=== PATIENT | female | born 1965 | race Caucasian/White ===

== ENCOUNTER 2018-04-09 15:22 | Emergency (ER) | payer MEDICARE, MEDICAID, SELFPAY ==
[2018-04-09 15:26] VITALS: BP 141/75; PULSE 79; RESP 22; TEMP 36.9; O2SAT 95
--- NOTE | 2018-04-09 15:36 | DI.RPTCT_ITS ---
SYMPTOM/DIAGNOSIS: LEFT FLANK/LEFT UPPER QUADRANT PAIN, COLICKY IN NATURE ABDOMINAL AND PELVIC CT: 04/09 CT examination of the abdomen and pelvis was performed without contrast administration. Images obtained through the lung bases are unremarkable. Liver and spleen have a normal noncontrast appearance. Gallbladder has been surgically removed. No biliary dilatation seen. The pancreas is unremarkable in appearance. Adrenals and kidneys appear normal. No urinary tract calcification or obstruction. Urinary bladder is nearly empty No abdominal wall hernia seen. No abdominal or pelvic adenopathy seen. Appendix appears normal. No evidence of diverticulitis or bowel obstruction. There is rounded fluid attenuation radiodensity in the pelvis on the right likely representing an ovarian cyst. The possibility of complex or solid mass not entirely excluded. Pelvic ultrasound suggested for correlation. CONCLUSION: Indeterminate but probably cystic right adnexal mass. Pelvic ultrasound suggested for correlation.
--- NOTE | 2018-04-09 15:38 | ED.GENADUL ---
Disposition Clinical Impression: Urinary tract infection Disposition: HOME Condition: Good Instructions: Urinary Tract Infection in Women (ED) Additional Instructions: Your CAT scan did reveal a cyst near your right ovary. Please follow-up with your regular doctor as an outpatient to have this further characterized by an outpatient ultrasound, as we discussed. Take antibiotics as prescribed. Continue all of your regularly prescribed medications. Home to rest this evening. Small, frequent sips of fluids to maintain hydration. Return to the emergency department for any acute concerns. You received narcotics in the form of morphine in addition to your prescribed oxycodone. You should not drive or operate heavy equipment the remainder of the day Prescriptions: Cephalexin [Keflex] 500 mg PO TID #20 cap Medical Decision Making - Lab Data Abnormal Lab Results 04/09/18 04/09/18 15:45 15:45 WBC 7.30 RBC 4.46 Hgb 14.4 Hct 39.9 MCV 89.5 MCH 32.3 MCHC 36.1 H RDW 12.7 Plt Count 364 MPV 8.5 Immature Gran % 0.8 Neutrophils % 56.5 Lymphocytes % 31.6 Monocytes % 8.6 Eosinophils % 1.8 Basophils % 0.7 Absolute Neutrophils 4.12 Absolute Lymphocytes 2.31 Absolute Monocytes 0.63 Absolute Eosinophils 0.13 Absolute Basophils 0.05 Sodium 134 L Potassium 4.0 Chloride 97 L Carbon Dioxide 27.8 Anion Gap 9.2 BUN 9 Creatinine 0.88 Estimated GFR/1.73 m2 >= 60.00 Glucose 88 Calcium 9.7 Magnesium 1.8 Total Bilirubin 0.5 AST 32 ALT 41 Alkaline Phosphatase 72 Total Protein 8.2 Albumin 4.8 Lipase 148 Results reviewed for labs ordered during visit: Yes - Radiology Data Radiology results: report reviewed, image reviewed - Medical Decision Making 53-year-old female presents with left upper quadrant/flank pain over 2 days time. She is afebrile, somewhat in distress as I walk into the room. Her exam reveals tenderness without rebound or guarding in the left upper quadrant of the abdomen. Differential diagnosis includes renal colic, ileus, diverticulitis. IV placed, patient given antiemetic and analgesic, referred for laboratory testing and CT images. Unremarkable CBC with white blood cell count of 7. Sodium 134, potassium 4.0, chloride 97, BUN 9, creatinine 0.8, AST 32, ALT 41. Lipase 148. Urinalysis reveals small amount of blood, moderate leuk esterase,Greater than 50 white blood cells with bacteria present. Culture pending. CT images reveal right 4 cm cyst, likely arising from the right adnexa. Otherwise unremarkable study. Patient advised she will require outpatient follow-up of her asymptomatic right adnexal cyst. Presentation is consistent with a sending urinary tract infection and will treat with an initial dose of ceftriaxone, followed by oral Keflex History of Present Illness - General Chief complaint: Abd Prob Stated complaint: UNKNOWN Time Seen by Provider: 04/09/18 15:26 Source: patient, RN notes reviewed Mode of arrival: ambulatory Limitations: no limitations - History of Present Illness Initial comments: 53-year-old female presents with abdominal pain: Patient states that she had a fairly rapid onset yesterday of left upper quadrant/flank pain that is constant, moderate, become severe as it has waves of increasing pain intermittent severe waves of pain. She states is nonradiating, without modifying factors. She has not had fever or vomiting. Denies fall or injury. No rash. She has otherwise been well. - Related Data Calcium Carbonate [Calcium] 600 mg PO BOLUS 04/09/18 Cephalexin [Keflex] 500 mg PO TID #20 cap 04/09/18 Cholecalciferol (Vitamin D3) [Vitamin D3] 5,000 unit PO DAILY 04/09/18 Fenofibrate 160 mg PO DAILY 04/09/18 Gabapentin [Neurontin] 900 mg PO BID 04/09/18 Levothyroxine Sodium [Synthroid] 50 mcg PO DAILY 04/09/18 Losartan Potassium 50 mg PO DAILY 04/09/18 Melatonin 20 mg PO HS 04/09/18 Meloxicam 15 mg PO DAILY 04/09/18 Methocarbamol [Robaxin] 750 mg PO TID 04/09/18 Metoprolol Succinate [Toprol Xl] 50 mg PO TID 04/09/18 Mirtazapine [Remeron] 7.5 mg PO HS 04/09/18 OxyCODONE [Roxicodone] 5 mg PO TID 04/09/18 Oxybutynin Chloride [Oxybutynin Chloride ER] 10 mg PO .Q6PM 04/09/18 QUEtiapine CR [SEROquel XR] 300 mg PO .Q6PM 04/09/18 Quetiapine Fumarate [Seroquel] 50 mg PO DAILY 04/09/18 Venlafaxine [Effexor] 75 mg PO BID 04/09/18 Venlafaxine [Effexor] 100 mg PO BID 04/09/18 Allergies Allergy/AdvReac Type Severity Reaction Status Date / Time codeine Allergy Unverified 04/09/18 15:35 doxycycline Allergy Unverified 04/09/18 15:35 Egg Derived Allergy Unverified 04/09/18 15:35 hydromorphone [From Dilaudid] Allergy Unverified 04/09/18 15:35 paroxetine [From Paxil] Allergy Unverified 04/09/18 15:35 Penicillins Allergy Unverified 04/09/18 15:35 Review of Systems Other: 6 systems reviewed, otherwise negative Past Medical History - Past Medical History See nursing notes General Exam - General Limitations: no limitations General appearance: alert, in no apparent distress - Head Head exam: Present: atraumatic, normocephalic - Eye Eye exam: Present: PERRL, EOMI - Neck Neck exam: Present: normal inspection, full ROM - Respiratory Respiratory exam: Present: normal lung sounds bilaterally. Absent: respiratory distress - Cardiovascular Cardiovascular Exam: Present: regular rate, normal rhythm - GI/Abdominal GI/Abdominal exam: Present: soft, tenderness, other (Left upper quadrant and flank tender to palpation ) - Extremities Exam Extremities exam: Present: normal inspection, normal capillary refill - Neurological Exam Neurological exam: Present: alert, oriented X3 - Psychiatric Psychiatric exam: Present: normal affect, normal mood - Skin Skin exam: Present: warm, dry, intact Course Vital Signs - 24 hr 04/09/18 15:26 Temperature 36.9 C Pulse 79 Respiratory 22 Rate Blood Pressure 141/75 Pulse Oximetry 95
[2018-04-09] MEDS: Ondansetron 4 MG/2 ML VIAL IVP (15:51)
[2018-04-09] MEDS: Ketorolac 30 MG/ML VIAL IVP (15:52)
[2018-04-09] MEDS: Normal Saline 1,000 ML 150 ML IV (15:53)
[2018-04-09 15:55] LABS: Abs Immature Grans 0.06 k/cumm (0.0-0.09); Absolute Basophil Count 0.05 k/cumm (0.0-0.2); Absolute Eosinophil Count 0.13 k/cumm (0.0-0.7); Absolute Lymphocyte Count 2.31 k/cumm (1.2-3.4); Absolute Monocyte Count 0.63 k/cumm (0.11-0.7); Absolute Neutrophil Count 4.12 k/cumm (1.2-6.7); Basophils % 0.7; Eosinophils % 1.8; HCT 39.9 % (36.0-46.0); HGB 14.4 g/dL (12.0-15.5); Immature Grans % 0.8; Lymphocytes % 31.6; Mean Corp. HGB Concentration 36.1 g/dL (32.0-36.0); Mean Corpuscular Hemoglobin 32.3 pg (27.0-33.0); Mean Corpuscular Volume 89.5 fL (80-95); Mean Platelet Volume 8.5 fL (8.0-11.0); Monocytes % 8.6; Neutrophils % 56.5; Platelet Count 364 x1000/uL (130-400); RBC 4.46 m/cumm (4.00-5.20); RBC Distribution Width 12.7 % (11.7-14.6)
[2018-04-09 16:12] LABS: ALT 41 U/L (12-78); AST 32 U/L (15-37); Albumin 4.8 g/dL (3.4-5.0); Alkaline Phosphatase 72 U/L (46-116); Anion Gap 9.2 mmol/L (3-11); BUN 9 mg/dL (7-18); Bilirubin, Total 0.5 mg/dL (0.2-1.0); CO2 27.8 mmol/L (21.0-32.0); CREATININE 0.88 mg/dL (0.55-1.02); Calcium 9.7 mg/dL (8.5-10.1); Chloride 97 mmol/L (98-107); Glucose 88 mg/dL (70-100); Lipase 148 U/L (73-393); Magnesium 1.8 mg/dL (1.8-2.4); Sodium 134 mmol/L (136-145); Total Protein 8.2 g/dL (6.4-8.2)
[2018-04-09] MEDS: oxyCODONE 5 MG TAB 10 MG (16:17)
--- NOTE | 2018-04-09 16:24 | DI.VRAD_ITS ---
EXAM: CT Abdomen and Pelvis Without Intravenous Contrast CLINICAL HISTORY: 53 years old, female; Pain; Abdominal pain; Flank; Left; Patient HX: Left flank/left upper quadrant pain, colicky in nature TECHNIQUE: Axial computed tomography images of the abdomen and pelvis without intravenous contrast. Coronal and sagittal reformatted images were created and reviewed. COMPARISON: No relevant prior studies available. FINDINGS: Lung bases: Unremarkable. No mass. No consolidation. ABDOMEN: Liver: Unremarkable. Gallbladder and bile ducts: The gallbladder is surgically absent. No ductal dilation. Pancreas: Unremarkable. No ductal dilation. Spleen: Unremarkable. No splenomegaly. Adrenals: Unremarkable. No mass. Kidneys and ureters: Unremarkable. No obstructing stones. No hydronephrosis. Stomach and bowel: Unremarkable. No obstruction. No mucosal thickening. PELVIS: Appendix: No findings to suggest acute appendicitis. Bladder: Unremarkable. No stones. Reproductive: 4 cm fluid density simple cyst in the right hemipelvis, likely arising from the right adnexa. The uterus is surgically absent. ABDOMEN and PELVIS: Intraperitoneal space: Unremarkable. No free air. No significant fluid collection. Bones/joints: No acute fracture. No dislocation. Soft tissues: Unremarkable. Vasculature: Unremarkable. No abdominal aortic aneurysm. Lymph nodes: Unremarkable. No enlarged lymph nodes. IMPRESSION: Fluid density 4 cm simple cyst in the right hemipelvis, likely arising from the right adnexa. Recommend further evaluation with pelvic ultrasound if clinically indicated. Dictated and Authenticated by: Woo Max MD. Ordering:AIDA SCHMID MD
[2018-04-09 16:43] LABS: Bilirubin Negative (Negative); Blood Small (Negative); Clarity Clear; Glucose Negative (Negative); Ketones Negative (Negative); Leukocyte Esterase Moderate (Negative); Nitrite Negative (Negative); Urobilinogen 0.2 EU/dL (Up TO 0.2)
[2018-04-09 16:56] LABS: Bacteria Few HPF (Negative); C & S Indicated? Yes; Casts Negative LPF (Negative); Crystals Negative HPF (Negative); Epithelial Cells Few HPF (Negative); Mucus Negative (Negative); Other Cells Few Renal (Negative); WBC >50 HPF (0-5)
[2018-04-09] MEDS: MORPHine 10 MG/ML VIAL 6 MG IVP (17:06)
[2018-04-09 17:50] VITALS: BP 109/65; PULSE 68; RESP 16; TEMP 36.9; O2SAT 96
== END 2018-04-09 19:12 | disposition home or self-care (01) ==
PROVIDERS: Emergency Provider Emergency Medicine; PCP Family Medicine
DX: N39.0 Urinary tract infection, site not specified (principal); N83.201 Unspecified ovarian cyst, right side
CPT/HCPCS: 74176; 96361; 96365; 96375; 99284 ×2; J0696; J1885; J2270; J2405; 36415; 80053; 83690; 81003; 81015; 83735; 85025; 87086

== ENCOUNTER 2018-04-30 00:26 | Outpatient (CLI) | payer OTHER, MEDICARE, MEDICAID, SELFPAY ==
--- NOTE | 2018-04-30 09:20 | DI.RAD_ITS ---
SYMPTOM/DIAGNOSIS: DISABILITY DETERMINATION, LOW BACK PAIN LUMBAR SPINE: AP and lateral views. No priors. There are five lumbar type vertebral bodies. There is no spondylolysis present. There is 5 mm. of anterolisthesis of L 4 on L 5. Mild disc space narrowing is seen at L 1-2, L 2-3 and L 5-S 1. Small endplate osteophytes are present throughout the lumbar spine. No acute fractures or subluxations are seen. The bones are normally mineralized. Surgical clips are seen in the right upper quadrant of the abdomen which may reflect prior cholecystectomy. There is a mild right convex curvature of the spine which may be positional. IMPRESSION: Mild degenerative changes seen in the lumbar spine. No acute fracture or subluxation. ID confirmed by photo scoop driver license.
== END 2018-04-30 00:46 ==
PROVIDERS: PCP Family Medicine; Visit Provider Pediatrics Pediatric Rheumatology
DX: M54.5 Low back pain (principal); Z02.71 Encounter for disability determination
CPT/HCPCS: 72100

== ENCOUNTER 2018-09-18 10:03 | Outpatient (CLI) | payer MEDICARE, MEDICAID, SELFPAY ==
[2018-09-18 11:03] LABS: Abs Immature Grans 0.14 k/cumm (0.0-0.09); Absolute Basophil Count 0.03 k/cumm (0.0-0.2); Absolute Eosinophil Count 0.14 k/cumm (0.0-0.7); Absolute Lymphocyte Count 2.26 k/cumm (1.2-3.4); Absolute Neutrophil Count 5.68 k/cumm (1.2-6.7); Basophils % 0.3; Eosinophils % 1.5; HCT 38.1 % (36.0-46.0); HGB 13.2 g/dL (12.0-15.5); Immature Grans % 1.5; Mean Corp. HGB Concentration 34.6 g/dL (32.0-36.0); Mean Corpuscular Hemoglobin 32.1 pg (27.0-33.0); Mean Corpuscular Volume 92.7 fL (80-95); Mean Platelet Volume 8.3 fL (8.0-11.0); Monocytes % 8.8; Neutrophils % 62.9; Platelet Count 301 x1000/uL (130-400); RBC 4.11 m/cumm (4.00-5.20); RBC Distribution Width 13.2 % (11.7-14.6); White Blood Cell Count 9.05 k/cumm (4.4-10.8)
[2018-09-18 11:37] LABS: ALT 21 U/L (12-78); Albumin 3.7 g/dL (3.4-5.0); Alkaline Phosphatase 57 U/L (46-116); Anion Gap 8.3 mmol/L (3-11); BUN 16 mg/dL (7-18); Bilirubin, Total 0.2 mg/dL (0.2-1.0); CO2 29.7 mmol/L (21.0-32.0); CREATININE 0.83 mg/dL (0.55-1.02); Calcium 8.7 mg/dL (8.5-10.1); Chloride 101 mmol/L (98-107); Glucose 97 mg/dL (70-100); Sodium 139 mmol/L (136-145); Total Protein 6.6 g/dL (6.4-8.2)
[2018-09-18 11:50] LABS: AST 8 U/L (15-37)
[2018-09-21 10:51] LABS: Hepatitis B Surface Ag Negative (NEGAT)
[2018-09-21 10:57] LABS: Hepatitis C Ab w Rflx HCV PCR Negative (NEGAT)
[2018-09-21 11:41] LABS: HBs Antibody, Quant <3.1 mIU/mL; Hepatitis B Surface Ab Negative
== END 2018-09-18 10:23 ==
PROVIDERS: Surgery; PCP Family Medicine; Visit Provider Family Medicine
DX: E03.9 Hypothyroidism, unspecified (principal); Z79.899 Other long term (current) drug therapy
CPT/HCPCS: 36415; 80053; 86706; 86803; 87340; 84443; 85025

== ENCOUNTER 2018-10-28 13:49 | Emergency (ER) | payer MEDICARE, MEDICAID, SELFPAY ==
[2018-10-28] VITALS (20 sets, daily range): BP systolic 102–148; BP diastolic 46–84; PULSE 60–73; RESP 7–21; TEMP 36.5–36.7; O2SAT 96–99
--- NOTE | 2018-10-28 14:37 | ED.GENADUL_ITS ---
Discharge Plan Disposition Patient Disposition: HOME Condition: Stable Discharge Details Chief Complaint: GenMedical Clinical Impression: Generalized pain, Chronic neck pain, Chronic back pain Primary Care Provider: Frank Lei ED Provider: Nell Adam Home Meds and New Rx's Prescriptions: Continued calcium carbonate 600 MG tablet 600 mg PO BOLUS RF: 0 cholecalciferol (vitamin D3) 5,000 UNIT capsule 5,000 unit PO DAILY RF: 0 methocarbamol [Robaxin] 500 MG tablet 750 mg PO TID RF: 0 oxybutynin chloride 10 MG tablet extended release 24hr 10 mg PO .Q6PM RF: 0 metoprolol succinate [Toprol XL] 50 MG tablet extended release 24 hr 50 mg PO DAILY RF: 0 meloxicam 15 MG tablet 15 mg PO DAILY RF: 0 levothyroxine [Synthroid] 50 MCG tablet 50 mcg PO DAILY RF: 0 gabapentin 300 MG capsule 900 mg PO BID RF: 0 mirtazapine [Remeron] 15 MG tablet 7.5 mg PO HS RF: 0 fenofibrate 160 MG tablet 160 mg PO DAILY RF: 0 quetiapine [Seroquel] 50 MG tablet 50 mg PO DAILY RF: 0 quetiapine [Seroquel XR] 300 MG tablet extended release 24 hr 300 mg PO .Q6PM RF: 0 melatonin 10 MG tablet 20 mg PO HS RF: 0 venlafaxine 150 mg Tablet Extended Release 24hr 300 mg PO DAILY AM RF: 0 mycophenolate mofetil 500 mg Tablet 500 mg PO DAILY AM RF: 0 prednisone 10 mg Tablet 10 mg PO DAILY AM RF: 0 Rituxan 10 mg/mL Concentrate RF: 0 ranitidine HCl 150 mg Tablet 150 mg PO BID RF: 0 Discontinued Metocarbinol 750 mg PO BID RF: 0 Discharge Instructions Instructions: Chronic Pain (ED), Chronic Back Pain (ED) Additional Instructions: Please return immediately to the emergency department if you develop any new or worsening symptoms or if you become otherwise concerned. It is extremely important that you make an appointment to be seen as soon as possible in follow- up this visit by your primary care doctor and also by your pain management physician. Please attend your scheduled appointment with your metal stamper tomorrow as planned. Referrals: Frank Lei [Primary Care Provider] - Discharge Data Discharge Date/Time-TO BE ENTERED AT DEPARTURE: 03/13/19 20:17 Medical Decision Making Sure-Gwendolyn Craig is a 53-year-old woman with history of of bullous pemphigoid on rituximab and mycophenolate, hypothyroidism presenting to the emergency department with all of her body aches worse in her lower neck and lower back, generalized weakness, lightheadedness over the past 2-3 weeks. On exam patient is well and nontoxic appearing. She has diffuse tenderness to palpation of the cervical, thoracic, lumbar spine with worse tenderness over the C6-C7 area no overlying skin changes. Nonfocal neurologic exam. Unclear etiology of symptoms. Concern for metabolic/lyte derangement, occult pneumonia, UTI, influenza, other. Doubt ACS. Exam/history is not consistent with sepsis, meningitis. Patient is immunocompromised, there is some possibility that her pain in her neck could represent infectious etiology, however I have low suspicion for this given her presentation. Plan for EKG, screening labs, IV fluids, UA, chest x-ray, will monitor and reassess. CT CERVICAL SPINE: Multiple contiguous axial images of the cervical spine were obtained. Sagittal and coronal reformatted images were evaluated on the [employer] work station, There is normal alignment of the cervical spine. No acute fracture or subluxation is seen. There is mild disc space narrowing at C5-6 and C6-7. Small end plate osteophytes are seen from C5-6 and C6-7. No significant central spinal canal stenosis is seen. There is mild neuroforaminal narrowing at C5-6 and C6-7 bilaterally. The soft tissues are unremarkable. IMPRESSION: 1. No acute fracture or subluxation in the cervical spine. 2. Mild cervical spondylosis. If there is continued concern MRI should be considered. CHEST X-RAY: PA and Lateral. The heart is normal in size. The lungs are clear. The mediastinal structures and pleura appear intact. CONCLUSION: Normal chest. CT LUMBAR SPINE: Multiple contiguous axial images of the lumbar spine were obtained. Sagittal and coronal reformatted images were evaluated on the [employer] work station. There is a very mild right convex scoliotic curvature of the spine. No acute fractures or subluxations are seen. At L5-S1 there is a mild disc bulge eccentric to the left and extending laterally to the left. No significant central spinal canal stenosis is seen. There are degenerative changes of the facets. There is mild narrowing of the left neural foramen. At L4-L5 there is a diffuse disc bulge extending to the left laterally. Degenerative changes of the facets are seen. No significant central spinal canal stenosis is seen. There is mild narrowing of the left neural foramen. It may impinge upon the exiting left nerve root. At L3-L4 no significant central spinal canal stenosis is seen. There may be mild narrowing of the neural foramen bilaterally. At L2-L3 there is a vacuum disc. There is disc space narrowing present. There is a diffuse disc bulge. Degenerative changes of the facets are seen. There is mild narrowing of the neural foramen and mild bilateral neural foraminal narrowing left greater than right. At L1-L2 there is disc space narrowing. End plate osteophytes are seen. There is a diffuse disc bulge. There is mild narrowing of the central spinal canal and no significant neural foraminal stenosis. The soft tissues are grossly unremarkable. IMPRESSION: Degenerative changes in the cervical spine as described above. If there is continued concern an MRI should be considered. I discussed negative CT results with the patient. Patient reports that she thinks pain has actually been this bad for quite some time, and she would like to see pain management. She does not think that there has been an acute worsening of pain. This makes infectious etiology very unlikely at this point. I did discuss outpatient MRI via her PCP with the patient, and she states that she would like to change to a PCP in this area as she lives in [place]. He would also like to see pain management and NVR H as well. Patient placed on care management list for outpatient follow-up. Patient feels well at this time and request discharge. She feels that her pain is manageable. I had a lengthy discussion with the patient regarding return to emergency department precautions, home care, and importance of outpatient follow-up. She verbalized understanding of the plan and is amenable. All questions were answered. Medical Records Medical records reviewed: Yes I reviewed the patient's medical records. Lab Data Lab results reviewed: Yes I reviewed the patient's lab results. 10/28/18 15:47 Blood Blood Culture - Final NO GROWTH 120 HOURS 10/28/18 15:35 Blood Blood Culture - Final NO GROWTH 120 HOURS 10/28/18 15:15 Nasopharynx Influenza Types A,B Antigen - Final Laboratory Tests Range/Units 10/28/18 10/28/18 10/28/18 15:15 15:15 15:15 WBC (4.4-10.8) k/cumm 6.73 RBC (4.00-5.20) m/cumm 3.86 L Hgb (12.0-15.5) g/dL 12.4 Hct (36.0-46.0) % 35.5 L MCV (80-95) fL 92.0 MCH (27.0-33.0) pg 32.1 MCHC (32.0-36.0) g/dL 34.9 RDW (11.7-14.6) % 13.6 Plt Count (130-400) x1000/uL 307 MPV (8.0-11.0) fL 8.2 ESR (0-30) MM/HR 23 Sodium (136-145) mmol/L 135 L Potassium (3.5-5.1) mmol/L 4.1 Chloride (98-107) mmol/L 98 Carbon Dioxide (21.0-32.0) mmol/L 27.9 Anion Gap (3-11) mmol/L 9.1 BUN (7-18) mg/dL 13 Creatinine (0.55-1.02) mg/dL 0.69 Estimated GFR/1.73 m2 (mL/min/1.73m2) >= 60.00 Glucose (70-100) mg/dL 85 Lactate (0.6-1.4) mmol/l 1.5 H Calcium (8.5-10.1) mg/dL 9.4 Total Bilirubin (0.2-1.0) mg/dL 0.3 AST (15-37) U/L 22 ALT (12-78) U/L 27 Alkaline Phosphatase (46-116) U/L 67 Troponin I Cancelled C-Reactive Protein (0.0-0.3) mg/dL 1.22 H Total Protein (6.4-8.2) g/dL 7.3 Albumin (3.4-5.0) g/dL 4.0 TSH (0.358-3.74) uIU/mL 3.91 H Free T4 (0.76-1.46) ng/dL 0.99 Urine Color (Yellow) Urine Clarity Urine pH (5-8) Ur Specific Paramount (1.005-1.025) Urine Protein (Negative) mg/dL Urine Ketones (Negative) mg/dL Urine Blood (Negative) Urine Nitrite (Negative) Urine Bilirubin (Negative) Urine Urobilinogen (Up TO 0.2) EU/dL Ur Leukocyte Esterase (Negative) Urine RBC (0-2) Urine WBC (0-5) HPF Ur Epithelial Cells (Negative) HPF Urine Crystals (Negative) HPF Urine Bacteria (Negative) HPF Urine Casts (Negative) LPF Urine Mucus (Negative) Urine Other (Negative) Ur Culture Indicated? Urine Glucose (Negative) mg/dL Range/Units 10/28/18 10/28/18 10/28/18 15:15 16:47 18:15 WBC (4.4-10.8) k/cumm RBC (4.00-5.20) m/cumm Hgb (12.0-15.5) g/dL Hct (36.0-46.0) % MCV (80-95) fL MCH (27.0-33.0) pg MCHC (32.0-36.0) g/dL RDW (11.7-14.6) % Plt Count (130-400) x1000/uL MPV (8.0-11.0) fL ESR (0-30) MM/HR Sodium (136-145) mmol/L Potassium (3.5-5.1) mmol/L Chloride (98-107) mmol/L Carbon Dioxide (21.0-32.0) mmol/L Anion Gap (3-11) mmol/L BUN (7-18) mg/dL Creatinine (0.55-1.02) mg/dL Estimated GFR/1.73 m2 (mL/min/1.73m2) Glucose (70-100) mg/dL Lactate (0.6-1.4) mmol/l Calcium (8.5-10.1) mg/dL Total Bilirubin (0.2-1.0) mg/dL AST (15-37) U/L ALT (12-78) U/L Alkaline Phosphatase (46-116) U/L Troponin I < 0.02 < 0.02 C-Reactive Protein (0.0-0.3) mg/dL Total Protein (6.4-8.2) g/dL Albumin (3.4-5.0) g/dL TSH (0.358-3.74) uIU/mL Free T4 (0.76-1.46) ng/dL Urine Color (Yellow) Yellow Urine Clarity Clear Urine pH (5-8) 7.5 Ur Specific Paramount (1.005-1.025) 1.010 Urine Protein (Negative) mg/dL Negative Urine Ketones (Negative) mg/dL Negative Urine Blood (Negative) Trace-intact H Urine Nitrite (Negative) Negative Urine Bilirubin (Negative) Negative Urine Urobilinogen (Up TO 0.2) EU/dL 0.2 Ur Leukocyte Esterase (Negative) Trace H Urine RBC (0-2) 0-2 Urine WBC (0-5) HPF 0-2 Ur Epithelial Cells (Negative) HPF Rare Urine Crystals (Negative) HPF Negative Urine Bacteria (Negative) HPF Rare Urine Casts (Negative) LPF Negative Urine Mucus (Negative) Negative Urine Other (Negative) Negative Ur Culture Indicated? No Urine Glucose (Negative) mg/dL Negative ECG Data Attestation: I personally reviewed and interpreted this ECG (s) as follows: Interpretation: EKG shows no STEMI HPI General Mode of arrival: ambulatory . Date/Time Provider Initiated Documentation: 10/28/18 14:37 . Limitations to Documentation: no limitations . Information obtained by: patient . HPI Narrative: Moses Craig is a 53-year-old woman with history of bullous pemphigoid, hypothyroidism, chronic back pain presenting to the emergency department with generalized body pain and lightheadedness. Patient reports that over the past 2-3 weeks she has had generalized body pain, worse in her lower neck and low back without other significant focal pain. Patient reports that neck and back pain is chronic, but severity is worse than usual. She also reports feeling somewhat weak and lightheaded over the same time period. She has had no presyncopal or syncopal episodes. She has had no fever, no cough, no shortness of breath, no vomiting, no diarrhea, no focal weakness. Has been eating and drinking as usual. No recent travel. Patient is on rituximab and mycophenolate. Has been able to go about her daily activities as usual. Related Data Home Medications Medication Instructions Recorded Confirmed calcium carbonate 600 mg PO BOLUS 04/09/18 04/09/18 cholecalciferol (vitamin D3) 5,000 unit PO DAILY 04/09/18 10/28/18 fenofibrate 160 mg PO DAILY 04/09/18 10/28/18 gabapentin 900 mg PO BID 04/09/18 10/28/18 levothyroxine [Synthroid] 50 mcg PO DAILY 04/09/18 10/28/18 melatonin 20 mg PO HS 04/09/18 10/28/18 meloxicam 15 mg PO DAILY 04/09/18 10/28/18 methocarbamol [Robaxin] 750 mg PO TID 04/09/18 10/28/18 metoprolol succinate [Toprol XL] 50 mg PO DAILY 04/09/18 10/28/18 mirtazapine [Remeron] 7.5 mg PO HS 04/09/18 10/28/18 oxybutynin chloride 10 mg PO .Q6PM 04/09/18 10/28/18 quetiapine [Seroquel XR] 300 mg PO .Q6PM 04/09/18 10/28/18 quetiapine [Seroquel] 50 mg PO DAILY 04/09/18 10/28/18 Rituxan 10/28/18 mycophenolate mofetil 500 mg PO DAILY AM 10/28/18 10/28/18 prednisone 10 mg PO DAILY AM 10/28/18 10/28/18 ranitidine HCl 150 mg PO BID 10/28/18 10/28/18 venlafaxine 300 mg PO DAILY AM 10/28/18 10/28/18 Allergies Allergy/AdvReac Type Severity Reaction Status Date / Time codeine Allergy Unverified 10/28/18 14:04 doxycycline Allergy Unverified 10/28/18 14:04 Egg Derived Allergy Unverified 10/28/18 14:04 hydromorphone [From Dilaudid] Allergy Unverified 10/28/18 14:04 paroxetine [From Paxil] Allergy Unverified 10/28/18 14:04 Penicillins Allergy Unverified 10/28/18 14:04 General Stated Complaint: GenMedical MELANIE: 3 Review of Systems Review of Systems Constitutional: denies fevers, reports generalized weakness Eyes: denies eye pain ENT: denies facial pain, dental pain, sore throat Cardiovascular: denies chest pain, reports mild lightheadedness Pulmonary: Denies cough, shortness of breath GI: denies abdominal pain, vomiting, diarrhea : denies flank pain MSK: denies back pain, neck pain, arthralgias, reports generalized myalgias Skin: denies rash Neuro: denies headaches, numbness, weakness [facility] Social History Smoking/Tobacco Use Status: Never Do you feel safe in your relationship?: Yes Exam Narrative Exam Narrative: Constitutional: well and [id number], pleasant, conversing normally HENT: head atraumatic/normocephalic/normal inspection, mucous membranes moist Eyes: conjunctiva normal, sclera normal, pupils 3mm b/l Neck: no stridor, normal ROM, trachea midline, diffuse tenderness to palpation of the cervical, thoracic, lumbar spine, with worse tenderness over C6-C7 Chest: normal inspection Resp: normal work of breathing, LCTAB Cardio: normal rate, normal rhythm, no murmur appreciated GI: abdomen soft, non-tender, non-distended Back: normal inspection, no rash Skin: warm, dry, normal color, no rash Neuro: alert, not altered, grossly non-focal, normal tone, motor 5 out of 5 throughout Psych: normal mood, normal affect, normal behavior Course Vital Signs Temperature 36.5 C 10/28/18 13:58 Pulse 66 10/28/18 13:58 Respiratory Rate 16 10/28/18 13:58 Blood Pressure 111/64 10/28/18 13:58 Pulse Oximetry 96 10/28/18 13:58 Temperature 36.5 C 10/28/18 13:58 Pulse 66 10/28/18 13:58 Respiratory Rate 16 10/28/18 13:58 Respiratory Effort 10/28/18 14:05 Blood Pressure 111/64 10/28/18 13:58 Pulse Oximetry 96 10/28/18 13:58 Oxygen Delivery Method Room Air 10/28/18 13:58 Oxygen Flow Rate 0 10/28/18 13:58
--- NOTE | 2018-10-28 15:03 | DI.RAD_ITS ---
SYMPTOM/DIAGNOSIS: GENERALIZED WEAKNESS, IMMUNO COMPROMISED CHEST X-RAY: PA and Lateral. The heart is normal in size. The lungs are clear. The mediastinal structures and pleura appear intact. CONCLUSION: Normal chest.
[2018-10-28] MEDS: Normal Saline 1,000 ML 1000 ML IV (15:20)
[2018-10-28 15:25] LABS: HCT 35.5 % (36.0-46.0); HGB 12.4 g/dL (12.0-15.5); Lactate-non-spesis 1.5 mmol/l (0.6-1.4); Mean Corp. HGB Concentration 34.9 g/dL (32.0-36.0); Mean Corpuscular Hemoglobin 32.1 pg (27.0-33.0); Mean Platelet Volume 8.2 fL (8.0-11.0); Platelet Count 307 x1000/uL (130-400); RBC 3.86 m/cumm (4.00-5.20); RBC Distribution Width 13.6 % (11.7-14.6); White Blood Cell Count 6.73 k/cumm (4.4-10.8)
[2018-10-28 15:50] LABS: Troponin I < 0.02 ng/mL (0.00-0.06)
[2018-10-28 15:57] LABS: ALT 27 U/L (12-78); AST 22 U/L (15-37); Alkaline Phosphatase 67 U/L (46-116); Anion Gap 9.1 mmol/L (3-11); BUN 13 mg/dL (7-18); Bilirubin, Total 0.3 mg/dL (0.2-1.0); C-Reactive Protein 1.22 mg/dL (0.0-0.3); CO2 27.9 mmol/L (21.0-32.0); CREATININE 0.69 mg/dL (0.55-1.02); Calcium 9.4 mg/dL (8.5-10.1); Chloride 98 mmol/L (98-107); Glucose 85 mg/dL (70-100); Potassium 4.1 mmol/L (3.5-5.1); Sodium 135 mmol/L (136-145); TSH (W/Ref FT4) 3.91 uIU/mL (0.358-3.74); Total Protein 7.3 g/dL (6.4-8.2)
[2018-10-28 16:15] LABS: ESR 23 MM/HR (0-30)
[2018-10-28 16:18] LABS: FREE T4 0.99 ng/dL (0.76-1.46)
--- NOTE | 2018-10-28 16:25 | DI.VRAD_ITS ---
EXAM: XR Chest, 2 Views EXAM DATE/TIME: 10/28/2018 4:10 PM CLINICAL HISTORY: 53 years old, female; Signs and symptoms; Other: Weakness TECHNIQUE: XR of the chest, 2 views. COMPARISON: No relevant prior studies available. FINDINGS: Lungs: Unremarkable. No consolidation. Pleural space: Unremarkable. No pleural effusion. No pneumothorax. Heart/Mediastinum: Unremarkable. No cardiomegaly. Bones/joints: Degenerative changes are seen thoracic spine. There is no acute bony abnormality. IMPRESSION: No acute findings Dictated and Authenticated by: Kim Garza MD. Ordering:IVY Camejo MD
--- NOTE | 2018-10-28 16:29 | DI.CT_ITS ---
SYMPTOM/DIAGNOSIS: LOWER BACK PAIN, IMMUNOCOMPROMISED CT LUMBAR SPINE: Multiple contiguous axial images of the lumbar spine were obtained. Sagittal and coronal reformatted images were evaluated on the [employer] work station. There is a very mild right convex scoliotic curvature of the spine. No acute fractures or subluxations are seen. At L5-S1 there is a mild disc bulge eccentric to the left and extending laterally to the left. No significant central spinal canal stenosis is seen. There are degenerative changes of the facets. There is mild narrowing of the left neural foramen. At L4-L5 there is a diffuse disc bulge extending to the left laterally. Degenerative changes of the facets are seen. No significant central spinal canal stenosis is seen. There is mild narrowing of the left neural foramen. It may impinge upon the exiting left nerve root. At L3-L4 no significant central spinal canal stenosis is seen. There may be mild narrowing of the neural foramen bilaterally. At L2-L3 there is a vacuum disc. There is disc space narrowing present. There is a diffuse disc bulge. Degenerative changes of the facets are seen. There is mild narrowing of the neural foramen and mild bilateral neural foraminal narrowing left greater than right. At L1-L2 there is disc space narrowing. End plate osteophytes are seen. There is a diffuse disc bulge. There is mild narrowing of the central spinal canal and no significant neural foraminal stenosis. The soft tissues are grossly unremarkable. IMPRESSION: Degenerative changes in the cervical spine as described above. If there is continued concern an MRI should be considered.
--- NOTE | 2018-10-28 16:29 | DI.CT_ITS ---
SYMPTOM/DIAGNOSIS: NECK JPAIN, IMMUNOCOMPROMISED CT CERVICAL SPINE: Multiple contiguous axial images of the cervical spine were obtained. Sagittal and coronal reformatted images were evaluated on the [employer] work station, There is normal alignment of the cervical spine. No acute fracture or subluxation is seen. There is mild disc space narrowing at C5-6 and C6-7. Small end plate osteophytes are seen from C5-6 and C6-7. No significant central spinal canal stenosis is seen. There is mild neuroforaminal narrowing at C5-6 and C6-7 bilaterally. The soft tissues are unremarkable. IMPRESSION: 1. No acute fracture or subluxation in the cervical spine. 2. Mild cervical spondylosis. If there is continued concern MRI should be considered.
[2018-10-28 16:55] LABS: Bilirubin Negative (Negative); Blood Trace-intact (Negative); Clarity Clear; Glucose Negative (Negative); Ketones Negative (Negative); Leukocyte Esterase Trace (Negative); Nitrite Negative (Negative); Urobilinogen 0.2 EU/dL (Up TO 0.2); pH 7.5 (5-8)
[2018-10-28 17:05] LABS: Bacteria Rare HPF (Negative); C & S Indicated? No; Casts Negative LPF (Negative); Crystals Negative HPF (Negative); Epithelial Cells Rare HPF (Negative); Mucus Negative (Negative); Other Cells Negative (Negative); RBC 0-2 (0-2); WBC 0-2 HPF (0-5)
--- NOTE | 2018-10-28 17:07 | DI.VRAD_ITS ---
EXAM: CT Cervical Spine Without Contrast EXAM DATE/TIME: 10/28/2018 4:31 PM CLINICAL HISTORY: 53 years old, female; Pain; Neck pain and radicular pain (radiculopathy); Cervical region; Patient HX: Neck pain xyears, new radiating pain to arms bilaterally, numbness and tingling in both hands. X2 weeks. TECHNIQUE: Axial computed tomography images of the cervical spine without intravenous contrast. All CT scans at this facility use at least one of these dose optimization techniques: automated exposure control; mA and/or kV adjustment per patient size (includes targeted exams where dose is matched to clinical indication); or iterative reconstruction. Coronal and sagittal reformatted images were created and reviewed. COMPARISON: No relevant prior studies available. FINDINGS: Vertebrae: There is mild straightening of the cervical lordosis which may be positional or due to spasm. There is minimal anterolisthesis of C3 with respect to C4. There is no evidence of an acute fracture in the cervical spine. There is no decrease in vertebral body height. There is no acute or destructive bony abnormality identified. Discs/Spinal canal/Neural foramina: There is disc space narrowing in the cervical spine. This appears most prominent at C6-C7. There are disc osteophyte complexes spondylitic changes of the endplates and facet arthropathy. There is mild narrowing of the canal at the level of the disc spaces but no high-grade central spinal stenosis. Degenerative changes lead to foraminal narrowing. Foraminal narrowing is mild and is most prominent at C5-6 and C6-7. Soft tissues: There is no evidence of a discrete soft tissue mass in the neck. Lungs: No significant consolidation is identified at the lung apices. IMPRESSION: No acute fracture. Mild cervical spondylosis, disc disease. If further evaluation of the intervertebral discs, cervical cord spinal canal and foramina is indicated, MR correlation is suggested Dictated and Authenticated by: Kim Garza MD. Ordering:IVY Camejo MD
--- NOTE | 2018-10-28 17:24 | DI.VRAD_ITS ---
EXAM: CT Lumbar Spine Without Contrast EXAM DATE/TIME: 10/28/2018 4:31 PM CLINICAL HISTORY: 53 years old, female; Pain; Lumbago with sciatica; Bilateral; Prior surgery; Surgery date: 6+ months; Surgery type: 1989; Patient HX: Low back pain xyears, new onset bilateral radiating pain to both legs. Surgery on lower back in 1989. No known trauma. TECHNIQUE: Axial computed tomography images of the lumbar spine without intravenous contrast. All CT scans at this facility use at least one of these dose optimization techniques: automated exposure control; mA and/or kV adjustment per patient size (includes targeted exams where dose is matched to clinical indication); or iterative reconstruction. Coronal and sagittal reformatted images were created and reviewed. COMPARISON: CR XR lumbar spine AP, LAT 04/30/2018 9:13 AM FINDINGS: Vertebrae: Alignment is unchanged when compared with the patient's prior plain film exam. There is scoliosis convex to the right with the apex of the curvature at approximately L2. There is no evidence of an acute fracture in the lumbar spine. There is no decrease of vertebral body height. There is no acute or destructive bony abnormality identified. Patient has had prior left laminotomy L4. SI joints are symmetric. Vacuum phenomenon is noted in the SI joints Discs/Spinal canal/Neural foramina: There is disc space narrowing in the lumbar spine. At L2-3 there is vacuum phenomena. There are bulges, spondylitic changes of the endplates and facet arthropathy. There is also vacuum phenomenon noted T10-T11 seen at the edge of the [id number]. There are bulges, spondylitic changes of the endplates in the lower thoracic spine but no high-grade spinal stenosis is identified. At L1-L2 there is mild narrowing of the central canal, lateral recesses at the level of the disc space. There is minimal foraminal narrowing. At L2-3 there is bulge spondylitic changes of the endplates and facet arthropathy with mild central and lateral recess stenosis. There is mild foraminal narrowing. Disc appears eccentric to the left laterally. Foraminal narrowing is slightly greater on the left. At L3-4 there is mild bulge. The canal is not significantly narrowed. There is minimal foraminal narrowing. At L4-5 bulge is again slightly eccentric to the left laterally. There is prominent facet arthropathy. There is mild narrowing of the canal at the level of the disc space. There is foraminal narrowing which is greater on the left than the right. It may affect the exiting left fourth nerve root. At L5-S1 bulge is eccentric to the left posteriorly and laterally. The central canal does not appear significantly narrowed. There is mild foraminal narrowing greater on the left than the right. Soft tissues: The exam was not tailored to evaluate the retroperitoneal or the paravertebral soft tissues. No significant abnormality is identified at this [id number]. IMPRESSION: 1. Scoliosis, lumbar spondylosis, disc disease. There is mild narrowing of the canal at the level of the disc spaces. This appears most prominent at L2-3. Degenerative changes also lead to foraminal narrowing. Foraminal narrowing appears most prominent on the left at L4-5. 2. If further evaluation of the intervertebral discs, spinal canal and foramina is indicated MR correlation is suggested Dictated and Authenticated by: Kim Garza MD. Ordering:IVY Camejo MD
[2018-10-28 18:39] LABS: Troponin I < 0.02 ng/mL (0.00-0.06)
--- NOTE | 2018-10-29 10:23 | PDOC.ERCMPRO ---
Care Management Progress Note 10/29-Dr. Chan Adam requested assistance with a PCP (Quique, [facility] [place]) as soon as possible for pain management. Moses is also looking for a new provider that is closer to home. She lives in [facility]. Called Dr. Lei's office and spoke with Magaly. Magaly requested MD note and radiology reports be faxed to Dr. Lei at [phone] for which they were. Discussed with Magaly that Moses would like a primary care closer to home. Magaly stated she would schedule Moses in f/u with Dr. Lei and then discuss transfer with Moses. Moses has a complex history so her medical records would have to be sent to a new provider before a new patient appt could be scheduled.
--- NOTE | 2018-10-29 10:24 | NUR.NOTE ---
Nursing Note: Phone call from [facility] requesting MD notes from yesterday. They are faxed. Fidelia Jones [phone] F [phone]
--- NOTE | 2018-10-29 10:26 | CMPROGNOTE_ITS ---
Care Management Progress Note 10/29-Dr. Chan Adam requested assistance with a PCP (Quique, [facility] [place]) as soon as possible for pain management. Moses is also looking for a new provider that is closer to home. She lives in [facility]. Called Dr. Lei's office and spoke with Magaly. Magaly requested MD note and radiology reports be faxed to Dr. Lei at [phone] for which they were. Discussed with Magaly that Moses would like a primary care closer to home. Magaly stated she would schedule Moses in f/u with Dr. Lei and then discuss transfer with Moses. Moses has a complex history so her medical records would have to be sent to a new provider before a new patient appt could be scheduled.
== END 2018-10-28 20:17 | disposition home or self-care (01) ==
PROVIDERS: Emergency Provider Student in an Organized Health Care Education/Training Program; PCP Family Medicine
DX: R52 Pain, unspecified (principal); M54.2 Cervicalgia; M54.9 Dorsalgia, unspecified
CPT/HCPCS: 36415; 80053; 85027; 85652; 87040; 87449; 96360; 99284; 71046; 72125; 72131; 81003; 81015; 83605; 84439; 84443; 84484; 86140

== ENCOUNTER 2019-03-29 14:27 | Outpatient (CLI) | payer MEDICARE, SELFPAY ==
[2019-03-29 15:31] LABS: ALT 668 U/L (12-78); AST 390 U/L (15-37); Albumin 4.5 g/dL (3.4-5.0); Alkaline Phosphatase 86 U/L (46-116); BUN 12 mg/dL (7-18); Bilirubin, Total 0.4 mg/dL (0.2-1.0); CREATININE 0.84 mg/dL (0.55-1.02); Calcium 9.5 mg/dL (8.5-10.1); Chloride 100 mmol/L (98-107); Glucose 153 mg/dL (70-100); Potassium 4.9 mmol/L (3.5-5.1); Sodium 137 mmol/L (136-145); Total Protein 7.6 g/dL (6.4-8.2)
[2019-03-30 10:11] LABS: HIV-1/2 Ag & Ab Screen Negative (NEGAT); Hepatitis B Surface Ag Negative (NEGAT)
[2019-03-30 10:13] LABS: Hepatitis C Ab w Rflx HCV PCR Negative (NEGAT)
[2019-03-30 10:34] LABS: Hep B Core Antibody Negative (NEGAT)
== END 2019-03-29 14:47 ==
PROVIDERS: PCP Family Medicine
DX: R94.5 Abnormal results of liver function studies (principal)
CPT/HCPCS: 36415; 80053; 86704; 86803; 87340; 87389

== ENCOUNTER 2019-08-02 13:39 | Emergency (ER) | payer MEDICARE, MEDICAID, SELFPAY ==
[2019-08-02 13:43] VITALS: BP 124/61; PULSE 85; RESP 22; TEMP 36.5; O2SAT 98
--- NOTE | 2019-08-02 14:58 | ED.GENADUL_ITS ---
Discharge Plan Disposition Patient Disposition: HOME Condition: Good Discharge Details Chief Complaint: Orthopedic Clinical Impression: Silveira's cyst Primary Care Provider: Frank Lei ED Provider: Mariya Delgado Home Meds and New Rx's Prescriptions: Continued amlodipine 5 mg tablet 5 mg PO DAILY RF: 0 sulfamethoxazole-trimethoprim [Bactrim DS] 800-160 mg tablet 1 tab PO .Three Times Weekly RF: 0 Betamethasone topical DIRECTED RF: 0 clotrimazole 1 % cream 1 applic TP BID RF: 0 [id number] acid See Rx Instructions PO DAILY RF: 0 triamcinolone acetonide 0.1 % cream 1 applic TP .As Directed RF: 0 gemfibrozil 600 mg tablet 600 mg PO BID RF: 0 conjugated estrogens 0.625 mg/gram cream 0.5 applic Vaginal .Twice Weekly RF: 0 cholecalciferol (vitamin D3) 5,000 UNIT capsule 5,000 unit PO DAILY RF: 0 oxybutynin chloride 10 MG tablet extended release 24hr 10 mg PO .Q6PM RF: 0 meloxicam 15 MG tablet 15 mg PO DAILY RF: 0 quetiapine [Seroquel] 50 MG tablet 50 mg PO DAILY RF: 0 quetiapine [Seroquel XR] 300 MG tablet extended release 24 hr 300 mg PO .Q6PM RF: 0 gabapentin 300 mg capsule See Rx Instructions .ROUTE .COMPLEX RF: 0 levothyroxine [Synthroid] 50 mcg tablet 75 mcg PO DAILY RF: 0 melatonin 10 mg tablet 30 mg PO HS RF: 0 metoprolol succinate [Toprol XL] 50 mg tablet extended release 24 hr 150 mg PO DAILY RF: 0 mirtazapine [Remeron] 15 mg tablet 7.5 mg PO HS RF: 0 calcium carbonate 600 mg calcium (1,500 mg) tablet 600 mg PO DAILY RF: 0 venlafaxine 150 mg Tablet Extended Release 24hr 300 mg PO DAILY AM RF: 0 Rituxan 10 mg/mL Concentrate RF: 0 ranitidine HCl 150 mg Tablet 150 mg PO BID RF: 0 prednisone 10 mg tablet 10 mg PO DAILY AM RF: 0 mycophenolate mofetil 500 mg tablet 750 mg PO BID RF: 0 tizanidine 4 mg Tablet 4 mg PO TID PRNRF: 0 Medical Marijuana See Rx Instructions .ROUTE .COMPLEX RF: 0 Discharge Instructions Instructions: Bakers Cyst (ED) Additional Instructions: Your ultrasound is reassuring today, no clots are noted. However, they did see a Silveira's cyst as discussed which accounts for the discomfort you are having. Please encourage rest, ice, elevation. Tylenol and/or ibuprofen as needed for discomfort. Joce bandage may help with symptoms. Please follow with primary care in 1 to 2 weeks if not improving. If you develop new or worsening symptoms please seek care urgently once again. Referrals: Frank Lei [Primary Care Provider] - Discharge Data Discharge Date/Time-TO BE ENTERED AT DEPARTURE: 08/02/19 17:10 Medical Decision Making <GORDON Bolanos - Last Filed: 08/03/19 13:04> 54-year-old patient presenting to the emergency room for complaints of right leg pain. Patient does have a history of lumbar pain and sciatica. Patient reports that leg seemed more swollen and painful than her baseline and she was concerned with the possibility of a DVT. Patient does have a history of fibromyalgia, lumbar surgeries, lumbago with sciatica. Patient denies difficulty breathing or shortness of breath or wheezing. Patient denies any ill feeling. Patient does report a fall in the remote past but no obvious resulting injury. On exam patient has medial thigh pain, mild knee pain with palpation. Mild pain with flexion extension of the knee. Mild calf pain reported on exam. No significant swelling present in the distal legs bilaterally. DTRs are intact. Nothing to indicate a neurosurgical emergency at this time. Patient primarily concerned with the possibility of a DVT in the leg. Ultrasound ordered for this reason. I do feel it is possible that this could be related to radicular pain from the lumbar spine. Patient signed out pending imaging results. <GORDON Sy - Last Filed: 08/02/19 17:59> Care transition myself from Malou Glover PA-C, with chief complaint of history of right leg pain. Please see her documentation regarding patient's initial presentation and exam. At the time of signout, imaging pending. CT reviewed by radiologist: FINDINGS: The common femoral, femoral and popliteal veins demonstrate normal compressibility, augmentation, and color Doppler. The posterior tibial veins are patent. The saphenous vein appears free of thrombus. There is a small Silveira's cyst measuring 2.3 x 2 x 0.8 cm. No hematoma is seen. IMPRESSION: No evidence of DVT. Small Silveira's cyst. Discussed these findings with the patient. I did reexamine her knee in the posterior medial aspect of the knee seems to be the maximal area of tenderness. This does correlate clinically with the findings on the ultrasound Likely exacerbated from recent fall. She does have good distal pulses and capillary refill. Patient also has a history of fibromyalgia and sciatica. She discussed treatment options. At this time, will opt to focus on the Silveira's cyst. Encourage rest, ice, elevation. Tylenol and ibuprofen as needed for discomfort. Patient was placed in an Joce wrap to help with compression. Advise follow-up with primary care in 1 to 2 weeks if not improving. She is given strict return precautions. All her questions and concerns were addressed she is agreement plan. HPI <GORDON Bolanos - Last Filed: 08/03/19 13:04> General Date/Time Provider Initiated Documentation: 08/02/19 14:57 . HPI Narrative: This is a 54-year-old patient who presents for complaints of right leg pain. Patient denies specific injury or trauma. Patient reports she is concerned with a blood clot. Patient denies difficulty beating shortness of breath or wheezing. Patient does report a history of chronic back pain. Patient does report sciatica type pain in the past. Patient reports low back discomfort as a baseline. Patient reports onset of mild swelling to the right leg therefore she was considered with the possibility of a DVT. Patient does report widespread numbness after receiving chemotherapy but unchanged in the affected leg compared to the contralateral leg. No fevers, chills, nausea, vomiting. Eating drink without difficulty. Related Data Home Medications Medication Instructions Recorded Confirmed cholecalciferol (vitamin D3) 5,000 unit PO DAILY 04/09/18 08/02/19 meloxicam 15 mg PO DAILY 04/09/18 08/02/19 oxybutynin chloride 10 mg PO .Q6PM 04/09/18 08/02/19 quetiapine [Seroquel XR] 300 mg PO .Q6PM 04/09/18 08/02/19 quetiapine [Seroquel] 50 mg PO DAILY 04/09/18 08/02/19 Rituxan 10/28/18 02/17/19 ranitidine HCl 150 mg PO BID 10/28/18 02/11/19 venlafaxine 300 mg PO DAILY AM 10/28/18 08/02/19 Betamethasone TOPICAL DIRECTED 02/11/19 02/11/19 amlodipine 5 mg tablet 5 mg PO DAILY 02/11/19 08/02/19 [id number] acid See Rx Instructions PO DAILY 02/11/19 02/11/19 calcium carbonate 600 mg calcium 600 mg PO DAILY tab 02/11/19 08/02/19 (1,500 mg) tablet clotrimazole 1 % topical cream 1 applic TP BID 02/11/19 02/11/19 conjugated estrogens 0.625 mg/gram 0.5 applic VAGINAL .Twice Weekly 02/11/19 02/11/19 vaginal cream gm gabapentin 300 mg capsule See Rx Instructions .ROUTE 02/11/19 08/02/19 .COMPLEX cap gemfibrozil 600 mg tablet 600 mg PO BID 02/11/19 08/02/19 levothyroxine 50 mcg tablet 75 mcg PO DAILY tab 02/11/19 08/02/19 melatonin 10 mg tablet 30 mg PO HS tab 02/11/19 08/02/19 metoprolol succinate 50 mg 150 mg PO DAILY tab 02/11/19 08/02/19 tablet,extended release 24 hr mirtazapine 15 mg tablet 7.5 mg PO HS 02/11/19 08/02/19 prednisone 10 mg tablet 10 mg PO DAILY AM tab 02/11/19 08/02/19 sulfamethoxazole 800 1 tab PO .Three Times Weekly tab 02/11/19 02/11/19 mg-trimethoprim 160 mg tablet triamcinolone acetonide 0.1 % 1 applic TP .As Directed gm 02/11/19 02/11/19 topical cream mycophenolate mofetil 500 mg tablet 750 mg PO BID tab 02/17/19 02/17/19 Medical Marijuana See Rx Instructions .ROUTE .COMPLEX 08/02/19 tizanidine 4 mg PO TID PRN 08/02/19 08/02/19 Allergies Allergy/AdvReac Type Severity Reaction Status Date / Time alfalfa Allergy Unknown Unverified 08/02/19 13:47 azithromycin [From Zithromax] Allergy Unknown Unverified 08/02/19 13:47 hepatitis B virus vaccine Allergy Unknown Verified 08/02/19 13:47 NSAIDS (Non-Steroidal Allergy Unknown Verified 08/02/19 13:47 Anti-Inflamma codeine Allergy Unverified 08/02/19 13:47 doxycycline Allergy Unverified 08/02/19 13:47 Egg Derived Allergy Unverified 08/02/19 13:47 hydromorphone [From Dilaudid] Allergy Unverified 08/02/19 13:47 paroxetine [From Paxil] Allergy Unverified 08/02/19 13:47 Penicillins Allergy Unverified 08/02/19 13:47 General Stated Complaint: Orthopedic MELANIE: 4 Review of Systems <GORDON Bolanos - Last Filed: 08/03/19 13:04> All systems reviewed & are unremarkable except as noted in HPI and below Constitutional Constitutional: Denies chills, Denies fatigue, Denies fever(s), Denies headache(s) and Denies malaise ENT Ears, Nose, Mouth, and Throat: Denies headache(s) Neurologic Neurologic: Denies headache(s) Endocrine Endocrine: Denies fatigue PFSH <GORDON Bolanos - Last Filed: 08/03/19 13:04> Medical History (Updated 08/02/19 @ 14:12 by Nell Smith) Anxiety (Chronic) Arthropathy (Acute) Bullous pemphigoid (Acute) Carpal tunnel syndrome (Acute) Depression (Chronic) Displacement of cervical intervertebral disc (Acute) Fibromyalgia (Acute) Hx of (Acute) Hypertensive disorder (Chronic) Hypothyroid (Chronic) Lumbago with sciatica (Acute) Mild major depression, single episode (Acute) OCD (obsessive compulsive disorder) (Acute) Psychophysiologic insomnia (Acute) PTSD (post-traumatic stress disorder) (Acute) Pure hyperglyceridemia (Acute) Surgical History (Updated 02/17/19 @ 10:24 by Vidya Garcia RN) H/O right heart catheterization (Acute) H/O tubal ligation (Chronic) H/O: (Chronic) H/O: hysterectomy (Chronic) History of bilateral carpal tunnel release (Acute) History of cholecystectomy (Chronic) History of lumbar laminectomy for spinal cord decompression (Acute) History of surgery involving uterine cervix, antepartum (Acute) removal of adhesions History of tonsillectomy and adenoidectomy (Acute) S/P excision of lipoma (Acute) Social History (Updated 02/17/19 @ 10:25 by Vidya Garcia RN) Smoking/Tobacco Use Status: Former Tobacco Use Alcohol Intake: current Alcohol Intake frequency: holidays/special occasions only Drug use: Daily Substance use type: marijuana Household members: spouse Housing: apartment Number of Children: 3 Communication Needs: Hard of Hearing current occupation: Disabled What is your relationship status?: Panel score (0-1 are the most socially isolated patients): 1 What type of physical activity do you participate in: swimming Do you feel safe at home: Yes Do you feel safe in your relationship?: Yes Additional Social history: Exam <GORDON Bolanos - Last Filed: 08/03/19 13:04> Narrative Exam Narrative: CONST: Healthy appearing patient, in no acute distress. Well hydrated. Alert and alert. HENMT: Head nomocephalic, normal to inspection. Atraumatic. Hearing grossly normal. EYES: General normal appearance. Alignment normal. Eyelids normal. Conjunctiva normal. NECK: Normal visual inspection. FROM. Trachea midline. No Midline tenderness. Back: Mild cervical tenderness with palpation. No thoracic tenderness with palpation. Moderate lumbar tenderness with palpation. No step-offs. Surgical scar noted over the midline of the lumbar spine. MUSCULOSKELETAL: Normal Gait. FROM of all extremities. Pain with straight leg raise on the right. Straight leg raise intact on the left with no pain. No foot drop. Sensation equal and intact bilaterally. Mild pain with palpation of medial aspect of the thigh and posterior calf. No evident asymmetrical swelling is present. No pitting edema present. DTRs intact at the patella bilaterally, equal SKIN: Normal. Dry. No rashes. NEURO: Alert and awake. Speech clear. Course <GORDON Bolanos - Last Filed: 08/03/19 13:04> Vital Signs Vital signs: Vital Signs Temperature 36.5 C 08/02/19 13:43 Pulse 85 08/02/19 13:43 Respiratory Rate 22 08/02/19 13:43 Blood Pressure 124/61 08/02/19 13:43 Pulse Oximetry 98 08/02/19 13:43 Temperature 36.5 C 08/02/19 13:43 Temperature Source Skin 08/02/19 13:43 Pulse 85 08/02/19 13:43 Respiratory Rate 22 08/02/19 13:43 Respiratory Effort Non-Labored 08/02/19 13:51 Blood Pressure 124/61 08/02/19 13:43 Blood Pressure Position Sitting 08/02/19 13:43 Pulse Oximetry 98 08/02/19 13:43 Oxygen Delivery Method Room Air 08/02/19 13:43 Oxygen Flow Rate 0 08/02/19 13:43 Pain Level 8 08/02/19 13:51 Comment 08/02/19 13:43
--- NOTE | 2019-08-02 15:44 | DI.US_ITS ---
EXAM: US LOWER EXTREMITY VENOUS RT CLINICAL HISTORY: pain, r/o DVT TECHNIQUE: Lower extremity venous ultrasound performed using grayscale, color-flow, and spectral Dop pler analysis. COMPARISON: No exams were available for comparison FINDINGS: The common femoral, femoral and popliteal veins demonstrate normal compressibility, augmentation, and color Doppler. The posterior tibial veins are patent. The saphenous vein appears free of thrombus. There is a small Silveira's cyst measuring 2.3 x 2 x 0.8 cm. No hematoma is seen. IMPRESSION: No evidence of DVT. Small Silveira's cyst.
== END 2019-08-02 17:10 | disposition home or self-care (01) ==
PROVIDERS: Emergency Provider Physician Assistant; PCP Family Medicine
DX: M71.21 Synovial cyst of popliteal space [Baker], right knee (principal)
CPT/HCPCS: 99284; 93971

== ENCOUNTER 2019-09-22 13:03 | Emergency (ER) | payer MEDICARE, MEDICAID, SELFPAY ==
[2019-09-22] VITALS (16 sets, daily range): BP systolic 79–122; BP diastolic 45–65; PULSE 64–80; RESP 4–20; TEMP 36.3; O2SAT 97–98
--- NOTE | 2019-09-22 13:39 | W.ED.GENAD ---
Discharge Plan Disposition Patient Disposition: HOME Condition: Good Discharge Details Chief Complaint: SOB Clinical Impression: Bronchitis, Viral URI Primary Care Provider: Frank Lei ED Provider: Stiven Major Home Meds and New Rx's Prescriptions: Continued amlodipine 5 mg tablet 5 mg PO DAILY RF: 0 Betamethasone topical DIRECTED RF: 0 clotrimazole 1 % cream 1 applic TP BID RF: 0 [id number] acid See Rx Instructions PO DAILY RF: 0 triamcinolone acetonide 0.1 % cream 1 applic TP .As Directed RF: 0 gemfibrozil 600 mg tablet 600 mg PO BID RF: 0 conjugated estrogens 0.625 mg/gram cream 0.5 applic Vaginal .Twice Weekly RF: 0 cholecalciferol (vitamin D3) 5,000 UNIT capsule 5,000 unit PO DAILY RF: 0 oxybutynin chloride 10 MG tablet extended release 24hr 10 mg PO .Q6PM RF: 0 meloxicam 15 MG tablet 15 mg PO DAILY RF: 0 quetiapine [Seroquel] 50 MG tablet 50 mg PO DAILY RF: 0 quetiapine [Seroquel XR] 300 MG tablet extended release 24 hr 300 mg PO .Q6PM RF: 0 gabapentin 300 mg capsule See Rx Instructions .ROUTE .COMPLEX RF: 0 levothyroxine [Synthroid] 50 mcg tablet 75 mcg PO DAILY RF: 0 melatonin 10 mg tablet 30 mg PO HS RF: 0 metoprolol succinate [Toprol XL] 50 mg tablet extended release 24 hr 150 mg PO DAILY RF: 0 mirtazapine [Remeron] 15 mg tablet 7.5 mg PO HS RF: 0 calcium carbonate 600 mg calcium (1,500 mg) tablet 600 mg PO DAILY RF: 0 venlafaxine 150 mg Tablet Extended Release 24hr 300 mg PO DAILY AM RF: 0 prednisone 10 mg tablet 20 mg PO DAILY AM RF: 0 tizanidine 4 mg Tablet 4 mg PO TID PRNRF: 0 Medical Marijuana See Rx Instructions .ROUTE .COMPLEX RF: 0 Discharge Instructions Instructions: Upper Respiratory Infection (ED), Acute Bronchitis (ED) Additional Instructions: At this time your chest x-ray shows no evidence of pneumonia, your influenza testing is negative. I suspect you have mild bronchitis likely from a virus. At this time please rest as much as possible, take 2 puffs from your inhaler every 4-6 hours. Drink 10 to 12 cups of water per day. take Tylenol 1000 mg every 6 hours as needed for any pain with coughing. If you notice any worsening of your symptoms, or any new symptoms such as vomiting, diarrhea, fever, chills, shortness of breath, chest pain, numbness, weakness, or fainting , please return immediately to the emergency department for reevaluation. Please follow up with your primary care provider as soon as possible for reassessment and reevaluation. As always, it was a pleasure participating in your medical care today. Referrals: Frank Lei [Primary Care Provider] - Discharge Data Discharge Date/Time-TO BE ENTERED AT DEPARTURE: 09/22/19 15:01 Medical Decision Making This is a 54-year-old female with a past medical history of previous tobacco abuse which is she has now stopped, mild reactive airway disease, who presents today for evaluation of flulike symptoms for the past week. She has a mild nonproductive cough. Physical exam demonstrates reassuring vital signs, she is afebrile, O2 is 98%, chest x-ray is negative for evidence of pneumonia, influenza testing is negative. Signs and symptoms appear consistent with a viral upper respiratory infection and mild bronchitis. With no fever, chills, or tachycardia I see no indication for antibiotics. I do feel that she would benefit from albuterol inhaler as she did have improvement of her symptoms with a DuoNeb here. Symptoms appearing consistent with significant asthma or COPD exacerbation. Will treat for bronchitis. Recommend continued fluids rest supportive care with inhaler use. Patient will be discharged home. Of note last documented blood pressure was 79/45 however upon time of discharge with patient while I was at bedside blood pressure was noted to be normal at 102 systolic over 50 diastolic. No signs of sepsis, hemodynamic instability or other significant abnormality. I have extensively reviewed the treatment plan and discharge instructions with the patient and their family. I have addressed all patient concerns at this time. The patient and family was made aware of what symptoms to monitor for that would warrant a return to the emergency department. Discussed the plan with the patient and family, they demonstrate verbal understanding and agreement with our assessment and plan at this time. EKG 13: 12 Rate 75, MN 166, QTc 418, QRS 102, sinus rhythm, inverted T wave in V1, and V3 and lead III. No significant ST elevations or depressions. No evidence of STEMI. FINDINGS: LUNGS: Clear. No pleural abnormality seen. HEART: Normal. MEDIASTINUM: Normal. OTHER FINDINGS:Normal. BONE:Normal. IMPRESSION: No acute pulmonary findings. HPI General Date/Time Provider Initiated Documentation: 09/22/19 13:26. HPI Narrative: This is a 54-year-old female with a past medical history of hepatitis, mild reactive airway disease, fibromyalgia, OCD, PTSD, who presents today for evaluation of cough, congestion, malaise. Symptoms have been present for the last week, and have been persistent. Cough is nonproductive, no hemoptysis. She has a very small amount of rib pain present when she coughs but no when she breathes. She denies any generalized irregular chest pain, exertional chest pain or chest tightness. She denies any tearing or ripping sensation in her chest. No bandlike sensation around her chest. She does admit to multiple other sick contacts that she interacts with. She denies other complaints at this time. She does not currently smoke tobacco, she does smoke marijuana. Denies PE risk factors such as recent long car rides, immobilization, recent surgery, prior history of DVT or PE, family history of PE or DVT, morbid obesity, exogenous estrogen and smoking, hemoptysis, history of cancer. Related Data Home Medications Medication Instructions Recorded Confirmed cholecalciferol (vitamin D3) 5,000 unit PO DAILY 04/09/18 09/22/19 meloxicam 15 mg PO DAILY 04/09/18 09/22/19 oxybutynin chloride 10 mg PO .Q6PM 04/09/18 09/22/19 quetiapine [Seroquel XR] 300 mg PO .Q6PM 04/09/18 09/22/19 quetiapine [Seroquel] 50 mg PO DAILY 04/09/18 09/22/19 venlafaxine 300 mg PO DAILY AM 10/28/18 09/22/19 Betamethasone TOPICAL DIRECTED 02/11/19 02/11/19 amlodipine 5 mg tablet 5 mg PO DAILY 02/11/19 09/22/19 [id number] acid See Rx Instructions PO DAILY 02/11/19 09/22/19 calcium carbonate 600 mg calcium 600 mg PO DAILY tab 02/11/19 09/22/19 (1,500 mg) tablet clotrimazole 1 % topical cream 1 applic TP BID 02/11/19 09/22/19 conjugated estrogens 0.625 mg/gram 0.5 applic VAGINAL .Twice Weekly 02/11/19 09/22/19 vaginal cream gm gabapentin 300 mg capsule See Rx Instructions .ROUTE 02/11/19 09/22/19 .COMPLEX cap gemfibrozil 600 mg tablet 600 mg PO BID 02/11/19 09/22/19 levothyroxine 50 mcg tablet 75 mcg PO DAILY tab 02/11/19 09/22/19 melatonin 10 mg tablet 30 mg PO HS tab 02/11/19 09/22/19 metoprolol succinate 50 mg 150 mg PO DAILY tab 02/11/19 09/22/19 tablet,extended release 24 hr mirtazapine 15 mg tablet 7.5 mg PO HS 02/11/19 09/22/19 prednisone 10 mg tablet 20 mg PO DAILY AM tab 02/11/19 08/02/19 triamcinolone acetonide 0.1 % 1 applic TP .As Directed gm 02/11/19 09/22/19 topical cream Medical Marijuana See Rx Instructions .ROUTE .COMPLEX 08/02/19 09/22/19 tizanidine 4 mg PO TID PRN 08/02/19 09/22/19 Allergies Allergy/AdvReac Type Severity Reaction Status Date / Time alfalfa Allergy Unknown Unverified 09/22/19 13:19 azithromycin [From Zithromax] Allergy Unknown Unverified 09/22/19 13:19 hepatitis B virus vaccine Allergy Unknown Verified 09/22/19 13:19 NSAIDS (Non-Steroidal Allergy Unknown Verified 09/22/19 13:19 Anti-Inflamma codeine Allergy Unverified 09/22/19 13:19 doxycycline Allergy Unverified 09/22/19 13:19 Egg Derived Allergy Unverified 09/22/19 13:19 hydromorphone [From Dilaudid] Allergy Unverified 09/22/19 13:19 paroxetine [From Paxil] Allergy Unverified 09/22/19 13:19 Penicillins Allergy Unverified 09/22/19 13:19 General Stated Complaint: SOB MELANIE: 2 Review of Systems All systems reviewed & are unremarkable except as noted in HPI and below PFSH Medical History (Updated 09/22/19 @ 14:45 by Stiven R Moriah, DO) Anxiety (Chronic) Arthropathy (Acute) Bullous pemphigoid (Acute) Carpal tunnel syndrome (Acute) Depression (Chronic) Displacement of cervical intervertebral disc (Acute) Fibromyalgia (Acute) Hx of (Acute) Hypertensive disorder (Chronic) Hypothyroid (Chronic) Lumbago with sciatica (Acute) Mild major depression, single episode (Acute) OCD (obsessive compulsive disorder) (Acute) Psychophysiologic insomnia (Acute) PTSD (post-traumatic stress disorder) (Acute) Pure hyperglyceridemia (Acute) Surgical History (Updated 02/17/19 @ 10:24 by Vidya Garcia RN) H/O right heart catheterization (Acute) H/O tubal ligation (Chronic) H/O: (Chronic) H/O: hysterectomy (Chronic) History of bilateral carpal tunnel release (Acute) History of cholecystectomy (Chronic) History of lumbar laminectomy for spinal cord decompression (Acute) History of surgery involving uterine cervix, antepartum (Acute) removal of adhesions History of tonsillectomy and adenoidectomy (Acute) S/P excision of lipoma (Acute) Social History (Updated 02/17/19 @ 10:25 by Vidya Garcia RN) Smoking/Tobacco Use Status: Former Tobacco Use Alcohol Intake: current Alcohol Intake frequency: holidays/special occasions only Drug use: Daily Substance use type: marijuana Household members: spouse Housing: apartment Number of Children: 3 Communication Needs: Hard of Hearing current occupation: Disabled What is your relationship status?: Panel score (0-1 are the most socially isolated patients): 1 What type of physical activity do you participate in: swimming Do you feel safe at home: Yes Do you feel safe in your relationship?: Yes Additional Social history: Exam Narrative Exam Narrative: 1.Const: Well-nourished, Well-developed, appearing stated age 2.Eyes: PERRL, no conjunctival injection, and symmetrical lids. 3.ENT: Atraumatic external nose and ears. Moist MM. Neck: Symmetric, trachea midline, No thyromegaly. No significant erythema in the posterior oropharynx 4.CVS: +S1/S2, No murmurs or gallops. Peripheral pulses 2+ and equal in all extremities. Brisk capillary refill in all extremities. 5.RESP: Unlabored respiratory effort. Clear to auscultation bilaterally. No wheezes rales or rhonchi 6.GI: Soft, Nontender/Nondistended, No hepatosplenomegaly. No guarding or rebound. 7.MSK: Normocephalic/Atraumatic, Extremities w/o deformity or ttp No cyanosis or clubbing, Normal movement of all extremities no calf tenderness 8.Skin: Warm, Dry. No rashes or lesions. 9.Neuro: controller mechanic II-XII grossly intact. Sensation grossly intact, no focal neurologic deficits. 10.Psych: (AAO) x3. Appropriate mood and affect Course Vital Signs Vital signs: Vital Signs Temperature 36.3 C L 09/22/19 13:10 Pulse 79 09/22/19 13:10 Respiratory Rate 20 09/22/19 13:10 Blood Pressure 122/65 09/22/19 13:10 Pulse Oximetry 98 09/22/19 13:10 Temperature 36.3 C L 09/22/19 13:10 Temperature Source Temporal Artery Scan 09/22/19 13:10 Pulse 71 09/22/19 13:16 Respiratory Rate 20 09/22/19 13:24 Respiratory Effort 09/22/19 13:24 Respiratory Depth Shallow 09/22/19 13:24 Respiratory Pattern Tachypnea 09/22/19 13:24 Blood Pressure 100/47 L 09/22/19 13:16 Blood Pressure Mean 60 09/22/19 13:16 Pulse Oximetry 98 09/22/19 13:16 Oxygen Delivery Method Room Air 09/22/19 13:10 Oxygen Flow Rate 0 09/22/19 13:10 Lab/Test Results Lab/Test Results: 09/22/19 13:24 Nasopharynx Influenza Types A,B Antigen - Pending
[2019-09-22] MEDS: Albuterol/Ipratropium 3 ML UPD VIAL UPD (13:56)
--- NOTE | 2019-09-22 14:30 | DI.RAD_ITS ---
EXAM: XR CHEST 2V PA LATERAL CLINICAL HISTORY: cough, r/o pneumonia. TECHNIQUE: 2D digital imaging was performed. COMPARISON: XR CHEST 2V PA LATERAL from 10/28/2018 FINDINGS: LUNGS: Clear. No pleural abnormality seen. HEART: Normal. MEDIASTINUM: Normal. OTHER FINDINGS:Normal. BONE:Normal. IMPRESSION: No acute pulmonary findings.
[2019-09-22] MEDS: Albuterol HFA 8 GM 60 PUFF INH IH (14:57)
[2019-09-22] MEDS: Inhaler, Assist Device 1 EACH MC (14:57)
== END 2019-09-22 15:01 | disposition home or self-care (01) ==
PROVIDERS: Emergency Provider Student in an Organized Health Care Education/Training Program; PCP Family Medicine
DX: J20.8 Acute bronchitis due to other specified organisms (principal); J06.9 Acute upper respiratory infection, unspecified; Z87.891 Personal history of nicotine dependence; I10 Essential (primary) hypertension
CPT/HCPCS: 87449; 93005; 94640; 99284; 71046; 93010; J7620

== ENCOUNTER 2019-09-27 10:16 | Emergency (ER) | payer MEDICARE, MEDICAID, SELFPAY ==
[2019-09-27 10:18] VITALS: BP 140/71; PULSE 99; RESP 20; TEMP 36.3; O2SAT 95
--- NOTE | 2019-09-27 10:38 | ED.GENADUL_ITS ---
Discharge Plan Disposition Patient Disposition: HOME Condition: Improving Discharge Details Chief Complaint: Abd Prob Clinical Impression: Contusion of multiple sites Primary Care Provider: Frank Lei ED Provider: Gaurang Dumont Home Meds and New Rx's Prescriptions: No Action amlodipine 5 mg tablet 5 mg PO DAILY RF: 0 Betamethasone topical DIRECTED RF: 0 clotrimazole 1 % cream 1 applic TP BID RF: 0 [id number] acid See Rx Instructions PO DAILY RF: 0 triamcinolone acetonide 0.1 % cream 1 applic TP .As Directed RF: 0 gemfibrozil 600 mg tablet 600 mg PO BID RF: 0 conjugated estrogens 0.625 mg/gram cream 0.5 applic Vaginal .Twice Weekly RF: 0 cholecalciferol (vitamin D3) 5,000 UNIT capsule 5,000 unit PO DAILY RF: 0 oxybutynin chloride 10 MG tablet extended release 24hr 10 mg PO .Q6PM RF: 0 meloxicam 15 MG tablet 15 mg PO DAILY RF: 0 quetiapine [Seroquel] 50 MG tablet 50 mg PO DAILY RF: 0 quetiapine [Seroquel XR] 300 MG tablet extended release 24 hr 300 mg PO .Q6PM RF: 0 gabapentin 300 mg capsule See Rx Instructions .ROUTE .COMPLEX RF: 0 levothyroxine [Synthroid] 50 mcg tablet 75 mcg PO DAILY RF: 0 melatonin 10 mg tablet 30 mg PO HS RF: 0 metoprolol succinate [Toprol XL] 50 mg tablet extended release 24 hr 150 mg PO DAILY RF: 0 mirtazapine [Remeron] 15 mg tablet 7.5 mg PO HS RF: 0 calcium carbonate 600 mg calcium (1,500 mg) tablet 600 mg PO DAILY RF: 0 venlafaxine 150 mg Tablet Extended Release 24hr 300 mg PO DAILY AM RF: 0 prednisone 10 mg tablet 20 mg PO DAILY AM RF: 0 tizanidine 4 mg Tablet 4 mg PO TID PRNRF: 0 Medical Marijuana See Rx Instructions .ROUTE .COMPLEX RF: 0 Medical Decision Making 54-year-old female who was seen in the ER on September 22 for URI symptoms. She had negative influenza test, unremarkable chest x-ray, was discharged home with an inhaler. She had persistent cough that is been not significantly changed. States that a day and a half ago she slipped and fell on icy steps, on her back. She did not have a loss of consciousness and denies headache or neck pain. She does complain of left greater than right chest, back, abdomen pain. She is mildly anxious. Her vital signs are reassuring. Differential diagnosis includes persistent URI, bronchitis, must exclude thoracic or abdominal injury given her blunt trauma. Patient had IV access established, screening labs obtained, she was referred for imaging studies. Labs: White blood cell count 9.4, hematocrit 40, platelets 278. Chemistries are reassuring with unremarkable LFTs, normal glucose. CT scan of the chest, abdomen, pelvis without acute findings. Please see formal report. Patient certainly has contusions. She is allergic to NSAIDs and has a fairly extensive list of medications. We did discuss the use of a small number of oral analgesics at home if needed for breakthrough pain and she will continue her other prescribed medications. Patient is stable to discharge to home at this time. HPI General Mode of arrival: ambulatory . Date/Time Provider Initiated Documentation: 09/27/19 10:16 . Limitations to Documentation: no limitations . Information obtained by: patient . History of Present Illness 54 year old F presents to the emergency department with the chief complaint of Complains of persistent URI symptoms, fall with back, chest, abdomen pain, described as moderate, Quality is described as dull, and is localized to the chest and abdomen. Patient reports no radiation. Patient started experiencing this day (s) and it has been constant. Rest improves symptom(s), Movement worsens symptoms . Patient notes cough; denies chest pain, headaches, syncope and weakness. Patient did receive the following treatments prior to arrival, other (Has been using inhaler) Related Data Home Medications Medication Instructions Recorded Confirmed cholecalciferol (vitamin D3) 5,000 unit PO DAILY 04/09/18 09/27/19 meloxicam 15 mg PO DAILY 04/09/18 09/27/19 oxybutynin chloride 10 mg PO .Q6PM 04/09/18 09/27/19 quetiapine [Seroquel XR] 300 mg PO .Q6PM 04/09/18 09/27/19 quetiapine [Seroquel] 50 mg PO DAILY 04/09/18 09/27/19 venlafaxine 300 mg PO DAILY AM 10/28/18 09/27/19 Betamethasone TOPICAL DIRECTED 02/11/19 02/11/19 amlodipine 5 mg tablet 5 mg PO DAILY 02/11/19 09/27/19 [id number] acid See Rx Instructions PO DAILY 02/11/19 09/27/19 calcium carbonate 600 mg calcium 600 mg PO DAILY tab 02/11/19 09/22/19 (1,500 mg) tablet clotrimazole 1 % topical cream 1 applic TP BID 02/11/19 09/27/19 conjugated estrogens 0.625 mg/gram 0.5 applic VAGINAL .Twice Weekly 02/11/19 09/27/19 vaginal cream gm gabapentin 300 mg capsule See Rx Instructions .ROUTE 02/11/19 09/27/19 .COMPLEX cap gemfibrozil 600 mg tablet 600 mg PO BID 02/11/19 09/27/19 levothyroxine 50 mcg tablet 75 mcg PO DAILY tab 02/11/19 09/27/19 melatonin 10 mg tablet 30 mg PO HS tab 02/11/19 09/27/19 metoprolol succinate 50 mg 150 mg PO DAILY tab 02/11/19 09/27/19 tablet,extended release 24 hr mirtazapine 15 mg tablet 7.5 mg PO HS 02/11/19 09/27/19 prednisone 10 mg tablet 20 mg PO DAILY AM tab 02/11/19 09/27/19 triamcinolone acetonide 0.1 % 1 applic TP .As Directed gm 02/11/19 09/27/19 topical cream Medical Marijuana See Rx Instructions .ROUTE .COMPLEX 08/02/19 09/22/19 tizanidine 4 mg PO TID PRN 08/02/19 09/27/19 Allergies Allergy/AdvReac Type Severity Reaction Status Date / Time alfalfa Allergy Unknown Unverified 09/27/19 10:21 azithromycin [From Zithromax] Allergy Unknown Unverified 09/27/19 10:21 hepatitis B virus vaccine Allergy Unknown Verified 09/27/19 10:21 NSAIDS (Non-Steroidal Allergy Unknown Verified 09/27/19 10:21 Anti-Inflamma codeine Allergy Unverified 09/27/19 10:21 doxycycline Allergy Unverified 09/27/19 10:21 Egg Derived Allergy Unverified 09/27/19 10:21 hydromorphone [From Dilaudid] Allergy Unverified 09/27/19 10:21 paroxetine [From Paxil] Allergy Unverified 09/27/19 10:21 Penicillins Allergy Unverified 09/27/19 10:21 General Stated Complaint: Abd Prob MELANIE: 3 Review of Systems Narrative: Tested negative for flu on visit September 22. Slipped and fell down stairs without loss of consciousness, denies head or neck pain complains of back and chest pain, upper abdomen pain, persistent cough. No vomiting. [facility] Medical History Anxiety (Chronic) Arthropathy (Acute) Bullous pemphigoid (Acute) Carpal tunnel syndrome (Acute) Depression (Chronic) Displacement of cervical intervertebral disc (Acute) Fibromyalgia (Acute) Hx of (Acute) Hypertensive disorder (Chronic) Hypothyroid (Chronic) Lumbago with sciatica (Acute) Mild major depression, single episode (Acute) OCD (obsessive compulsive disorder) (Acute) Psychophysiologic insomnia (Acute) PTSD (post-traumatic stress disorder) (Acute) Pure hyperglyceridemia (Acute) Surgical History (Updated 02/17/19 @ 10:24 by Vidya Garcia RN) H/O right heart catheterization (Acute) H/O tubal ligation (Chronic) H/O: (Chronic) H/O: hysterectomy (Chronic) History of bilateral carpal tunnel release (Acute) History of cholecystectomy (Chronic) History of lumbar laminectomy for spinal cord decompression (Acute) History of surgery involving uterine cervix, antepartum (Acute) removal of adhesions History of tonsillectomy and adenoidectomy (Acute) S/P excision of lipoma (Acute) Social History Smoking/Tobacco Use Status: Former Tobacco Use Alcohol Intake: former Drug use: Daily Substance use type: marijuana Household members: spouse Housing: apartment Number of Children: 3 Communication Needs: Hard of Hearing current occupation: Disabled What is your relationship status?: Panel score (0-1 are the most socially isolated patients): 1 What type of physical activity do you participate in: swimming Do you feel safe at home: Yes Do you feel safe in your relationship?: Yes Additional Social history: Exam Narrative Exam Narrative: GEN: awake, alert, oriented 3. Pleasant, well groomed, interactive. HEAD: Normocephalic, atraumatic ENT: Mucous membranes moist, oropharynx unremarkable, External ear exam unremarkable EYES: PERRL, EOMI NECK: Full ROM, no SHAHNAZ, no menigismus CHEST/RESP: Nonfocal tenderness throughout the chest wall left greater than right, clear to auscultation bilateral, no wheeze/rhonchi/rales CARDIOVASCULAR: RRR, no murmur, rub saul. 2+ Rad pulse bilateral ABDOMEN: Soft, non-focal tenderness without rebound, no mass. +Bowel sounds EXT: Full ROM, no edema, no rash Neuro: Grossly normal neurologic exam, conversant, interactive. Psych: Speech fluent, thoughts congruent, affect normal Course Vital Signs Vital signs: Vital Signs Temperature 36.3 C L 09/27/19 10:18 Pulse 99 H 09/27/19 10:18 Respiratory Rate 20 09/27/19 10:18 Blood Pressure 140/71 09/27/19 10:18 Pulse Oximetry 95 09/27/19 10:18 Temperature 36.3 C L 09/27/19 10:18 Temperature Source Temporal Artery Scan 09/27/19 10:18 Pulse 99 H 09/27/19 10:18 Respiratory Rate 20 09/27/19 10:18 Respiratory Effort Non-Labored 09/27/19 10:26 Blood Pressure 140/71 09/27/19 10:18 Blood Pressure Position Sitting 09/27/19 10:18 Pulse Oximetry 95 09/27/19 10:18 Oxygen Delivery Method Room Air 09/27/19 10:18 Oxygen Flow Rate 0 09/27/19 10:18 Pain Level 9 09/27/19 10:18
[2019-09-27 10:50] LABS: Abs Immature Grans 0.08 k/cumm (0.0-0.09); Absolute Basophil Count 0.04 k/cumm (0.0-0.2); Absolute Eosinophil Count 0.12 k/cumm (0.0-0.7); Absolute Lymphocyte Count 1.78 k/cumm (1.2-3.4); Absolute Monocyte Count 0.98 k/cumm (0.11-0.7); Absolute Neutrophil Count 6.43 k/cumm (1.2-6.7); Basophils % 0.4; Eosinophils % 1.3; HCT 40.7 % (36.0-46.0); HGB 14.3 g/dL (12.0-15.5); Immature Grans % 0.8 %; Lymphocytes % 18.9; Mean Corp. HGB Concentration 35.1 g/dL (32.0-36.0); Mean Corpuscular Hemoglobin 32.2 pg (27.0-33.0); Mean Corpuscular Volume 91.7 fL (80-95); Mean Platelet Volume 8.2 fL (8.0-11.0); Monocytes % 10.4; Neutrophils % 68.2; Platelet Count 278 x1000/uL (130-400); RBC 4.44 m/cumm (4.00-5.20); RBC Distribution Width 13.4 % (11.7-14.6); White Blood Cell Count 9.43 k/cumm (4.4-10.8)
[2019-09-27] MEDS: Normal Saline 1,000 ML 125 ML IV (10:55)
[2019-09-27] MEDS: Normal Saline Flush 10 ML SYR IVP (10:55)
[2019-09-27 11:06] LABS: ALT 53 U/L (14-59); AST 31 U/L (15-37); Albumin 3.9 g/dL (3.4-5.0); Alkaline Phosphatase 102 U/L (46-116); Anion Gap 8.5 mmol/L (3-11); BUN 7 mg/dL (7-18); Bilirubin, Total 0.7 mg/dL (0.2-1.0); CO2 30.5 mmol/L (21.0-32.0); CREATININE 0.79 mg/dL (0.55-1.02); Calcium 9.1 mg/dL (8.5-10.1); Chloride 100 mmol/L (98-107); Glucose 119 mg/dL (74-106); Magnesium 1.9 mg/dL (1.8-2.4); Potassium 3.4 mmol/L (3.5-5.1); Sodium 139 mmol/L (136-145); Total Protein 7.7 g/dL (6.4-8.2)
[2019-09-27] MEDS: Omnipaque 350 MG/ML 100 ML BTL IJ (11:45)
--- NOTE | 2019-09-27 11:45 | DI.CT_ITS ---
EXAM: CT CHEST/ABD/PEL W CLINICAL HISTORY: Fall downstairs, mid back, left chest, upper abdom TECHNIQUE: Post IV contrast. Without oral contrast COMPARISON: ABD PELVIS WO CONTRAST from 04/09/2018 XR CHEST 2V PA LATERAL from 09/22/2019 FINDINGS: Chest CT: There are no pleural or pericardial effusions. The heart and great vessels appear intact. There is no evidence of pneumothorax or infiltrate. No rib or spine fractures are seen. Degenerat jhonny disc changes are present in the mid to lower thoracic spine. There is also mild scoliosis. Abdomen and pelvis: Liver shows mild fatty infiltration. The patient is status post cholecystectomy. The liver, spleen, pancreas, kidneys and adrenals appear intact. There is no free air or free flui d. No bowel dilatation or wall thickening is seen. The patient is status post hysterectomy. The bl adder is intact. There is a stable right ovarian cyst. No spine or pelvic fractures are seen. Ther e are degenerative changes and scoliosis. IMPRESSION: No acute abnormalities are seen in the chest abdomen or pelvis.
[2019-09-27 12:37] VITALS: BP 129/69; PULSE 83; RESP 16; TEMP 36.6; O2SAT 94
== END 2019-09-27 12:35 | disposition home or self-care (01) ==
LOC: ER 12:19
PROVIDERS: Emergency Provider Emergency Medicine; PCP Family Medicine
DX: S20.222A Contusion of left back wall of thorax, initial encounter (principal); S30.0XXA Contusion of lower back and pelvis, initial encounter; W00.1XXA Fall from stairs and steps due to ice and snow, initial encounter; R05 Cough; R10.10 Upper abdominal pain, unspecified; I10 Essential (primary) hypertension
CPT/HCPCS: 74177; 80053; 96360; 96361; 99285; 71260; 83735; 85025; 99284; J3490

== ENCOUNTER → 2020-07-20 13:55 | Outpatient (BNVA) | payer MEDICARE, MEDICAID, SELFPAY | PROVIDERS: PCP Family Medicine; Referring Provider Family Medicine; Visit Provider Nurse Practitioner Adult Health | DX: G56.03 Carpal tunnel syndrome, bilateral upper limbs (principal) | CPT/HCPCS: 95911; 99203; 99214 ==